=== PATIENT | female | born 1960 | race Caucasian/White ===

== ENCOUNTER 2018-05-02 09:12 | Day surgery (SDC) | payer BC, OTHER ==
[2018-05-02] MEDS: TETRACAINE 0.5% 4 ML OPH (PRE-OP) OPER ×2 (09:50→11:30)
[2018-05-02] MEDS: CYCLOPENTOLATE 1% 2 ML OPH OPER (09:50)
[2018-05-02] MEDS: PHENYLephrine 2.5% 15 ML OPH (PRE-OP) OPER (09:50)
[2018-05-02] MEDS: CIPROFLOXACIN 0.3% 2.5 ML OPH (PRE-OP) OPER (09:50)
[2018-05-02] MEDS: DICLOFENAC 0.1% 2.5 ML OPH (PRE-OP) OPER (09:51)
[2018-05-02] MEDS: TROPICAMIDE 1% 15 ML OPH (PRE OP) OPER (09:51)
[2018-05-02] MEDS: ACETAMINOPHEN 325 MG TAB (POST-OP) PO (09:52)
[2018-05-02] MEDS ORDERED: DIPHENHYDRAMINE 50 MG INJ IV (10:30)
[2018-05-02] MEDS ORDERED: FENTAnyl 50 MCG/ML VIAL IV (10:30)
[2018-05-02] MEDS ORDERED: OXYCODONE/ACETAMINOPHEN (5/325) TAB PO (10:30)
[2018-05-02] MEDS ORDERED: ACETAMINOPHEN 325 MG TAB PO (10:30)
[2018-05-02] MEDS ORDERED: ALBUTEROL 0.083% (NEB) 2.5 MG/3 ML AMP HHN (10:30)
[2018-05-02] MEDS ORDERED: ACETAMINOPHEN 500 MG TAB PO (10:30)
[2018-05-02] MEDS ORDERED: LABETALOL HCL 20MG INJ IV (10:30)
[2018-05-02 11:13] LABS: POTASSIUM 5.1 mmol/L (3.5-5.1)
[2018-05-02] MEDS ORDERED: MIDAZOLAM 1 MG/ML 2 ML INJ (11:23)
[2018-05-02] MEDS: TOBRAMYCIN/DEXAMETH 3.5 GM OPH OINT (11:30)
[2018-05-02] MEDS: LIDOCAINE 4% (MPF) 5 ML INJ OPER (11:30)
[2018-05-02] MEDS ORDERED: METOPROLOL 5 MG INJ (11:36)
[2018-05-02] MEDS ORDERED: MOXIFLOXACIN 0.5% 3 ML OPH (11:40)
[2018-05-02] MEDS: hydrALAzine 20 MG INJ IV ×2 (12:22→12:47)
[2018-05-02] MEDS: ONDANSETRON 4 MG INJ IV (12:32)
== END 2018-05-02 13:42 | disposition home or self-care (01) ==
LOC: SDS 09:12
DX: H26.8 Other specified cataract (principal); I12.0 Hypertensive chronic kidney disease with stage 5 chronic kidney disease or end stage renal disease; N18.6 End stage renal disease; Z99.2 Dependence on renal dialysis; E11.9 Type 2 diabetes mellitus without complications
CPT/HCPCS: 66984; 82962; 84132